=== PATIENT | male | born 1945 | race Hispanic/Latino ===

== ENCOUNTER → 2019-09-25 | Outpatient (CLI) | payer OTHER | END | disposition home or self-care (01) | LOC: RAH 11:16 | PROVIDERS: ATTEND Internal Medicine Cardiovascular Disease | DX: Z13.6 Encounter for screening for cardiovascular disorders (principal); K44.9 Diaphragmatic hernia without obstruction or gangrene | CPT/HCPCS: 75571 ==

== ENCOUNTER → 2019-10-10 | Outpatient (CLI) | payer MEDICARE ==
[~2019-10-10] MED LIST: ATOR-2 PO; CITA40TA6 PO; CLOP75TA14 PO; FURO40TA5 PO; LOSA50TA64 PO; METO-408 PO; OMEP20CA12 PO
== END | disposition home or self-care (01) ==
LOC: SHCH 14:19
PROVIDERS: ATTEND Internal Medicine Cardiovascular Disease
DX: I35.2 Nonrheumatic aortic (valve) stenosis with insufficiency (principal); I25.10 Atherosclerotic heart disease of native coronary artery without angina pectoris
CPT/HCPCS: 93306

== ENCOUNTER → 2019-11-23 | Outpatient (CLI) | payer MEDICARE ==
[~2019-11-23] MED LIST changes: +REGADENOSON 0.4 MG/5 ML PF SYG IVP SCH
== END | disposition home or self-care (01) ==
LOC: SHCH 11:42
PROVIDERS: ATTEND Internal Medicine Cardiovascular Disease
DX: I21.09 ST elevation (STEMI) myocardial infarction involving other coronary artery of anterior wall (principal); I21.19 ST elevation (STEMI) myocardial infarction involving other coronary artery of inferior wall; I25.89 Other forms of chronic ischemic heart disease; I25.10 Atherosclerotic heart disease of native coronary artery without angina pectoris
CPT/HCPCS: 78452; 93017; 96374; A9500 ×2; J2785

== ENCOUNTER 2019-12-01 05:59 | Observation (INO) | payer MEDICARE ==
[2019-11-29 09:11] LABS: BASOPHILS % (AUTO) 0.4 % (0.0-5.0); EOSINOPHILS % (AUTO) 3.6 % (0.0-8.0); HEMATOCRIT 33.8 % (42-54); LYMPHOCYTES % (AUTO) 27.7 % (21.0-51.0); MEAN CORPUSCULAR HEMOGLOBIN 31.9 pg (27.0-33.0); MEAN CORPUSCULAR HGB CONC 34.3 g/dL (32.0-36.0); MEAN CORPUSCULAR VOLUME 92.9 fL (79-99); MONOCYTES % (AUTO) 9.1 % (3.0-13.0); PLATELET COUNT (AUTO) 174 K/uL (130-400); RED BLOOD CELL COUNT(AUTO) 3.64 MIL/uL (4.50-6.20); RED CELL DISTRIBUTION WIDTH 12.6 % (11.0-15.5); WHITE BLOOD COUNT (AUTO) 5.6 K/uL (4.8-10.8)
[2019-11-29 09:18] LABS: APPEARANCE,URINE CLEAR (CLEAR); BILIRUBIN,URINE SMALL (NEGATIVE); COLOR,URINE YELLOW (YELLOW); GLUCOSE, URINE (UA) NEGATIVE (NEGATIVE); KETONES,URINE 5 mg/dL (NEGATIVE); LEUKOCYTE ESTERASE ,URINE NEGATIVE (NEGATIVE); NITRATE,URINE NEGATIVE (NEGATIVE); OCCULT BLOOD,URINE NEGATIVE (NEGATIVE); PROTEIN,URINE NEGATIVE (NEGATIVE); UROBILINOGEN,URINE 0.2 mg/dL (0.2-1.0)
[2019-11-29 09:20] LABS: CREATININE 1.3 mg/dL (0.5-1.5); POTASSIUM 4.6 mmol/L (3.5-5.1)
[2019-11-29 09:34] LABS: INR 0.98 (0.85-1.15); PARTIAL THROMBOPLASTIN TIME 26.5 SEC (26.3-35.5); PROTHROMBIN TIME 10.6 SEC (9.6-11.6)
[2019-11-29 09:36] LABS: BACTERIA,URINE Rare /HPF (None Seen); MUCUS,URINE Many LPF (None Seen); RBC,URINE 0-1 /HPF (0-1); SQUAMOUS EPITHELIAL CELL,UR Rare /HPF (0-2)
[2019-11-29 12:52] VITALS: BP 135/56
--- NOTE | 2019-11-30 13:31 | NUR ---
MONICA MATA CARDIAC REHABILITATION SPECIALIST NOTIFIED OF CREAT 1.3, NO NEW ORDERS RECEIVED OK TO PROCEED.
[~2019-12-01] VITALS: Ht 165.1 cm; Wt 93.0 kg
[2019-12-01] VITALS (20 sets, daily range): BP systolic 102–164; BP diastolic 49–61
[~2019-12-01 05:59] MED LIST changes: -REGADENOSON 0.4 MG/5 ML PF SYG IVP SCH; +SODIUM CHLORIDE 0.9% 500ML 500 ML IV SCH
[2019-12-01] MEDS ORDERED: HEPARIN SODIUM 1000UNIT/ML 10ML VIAL ONE (07:19)
[2019-12-01] MEDS ORDERED: NITROGLYCERIN 2 MG/VIAL VIAL IV ONE (07:19)
[2019-12-01] MEDS ORDERED: IOHEXOL-350 50ML VIAL IV ONE (07:20)
[2019-12-01] MEDS ORDERED: IOHEXOL 350 MG/ML 100ML INFUS..BTL IV ONE (07:20)
[2019-12-01] MEDS ORDERED: LIDOCAINE HCL 2% 20ML ONE (07:20)
[2019-12-01] MEDS ORDERED: MIDAZOLAM HCL 1 MG/ML 2ML VIAL ONE (07:36)
[2019-12-01] MEDS ORDERED: IOHEXOL-350 75 ML VIAL IV ONE (07:56)
[2019-12-01] MEDS ORDERED: SODIUM CHLORIDE 0.9% 1000ML 1,000 ML IV ONE (08:03)
[2019-12-01] MEDS ORDERED: ASPIRIN 325MG EC TAB 325 MG TABLET.DR PO ONE (08:04)
[2019-12-01] MEDS ORDERED: CLOPIDOGREL BISULFATE 75 MG TAB ONE (08:11)
[2019-12-01] MEDS ORDERED: CLOPIDOGREL BISULFATE 300 MG TAB PO SCH (08:30)
[2019-12-01] MEDS ORDERED: TEMAZEPAM 30 MG CAP PO PRN (08:30)
[2019-12-01] MEDS ORDERED: ACETAMINOPHEN-CODEINE 300/30MG TAB PO PRN ×2 (08:30)
[2019-12-01] MEDS ORDERED: MORPHINE SULFATE 4 MG/1ML SYG IVP SCH (08:30)
[2019-12-01] MEDS ORDERED: ONDANSETRON HCL 4 MG/2 ML VIAL IVP SCH (08:30)
[2019-12-01] MEDS ORDERED: ONDANSETRON HCL 4 MG/2 ML VIAL IVP PRN (08:30)
[2019-12-01] MEDS: PANTOPRAZOLE SODIUM 40 MG TABLET.DR PO SCH (08:35)
[2019-12-01] MEDS: ASPIRIN 81MG TAB.CHEW PO SCH (09:00)
--- NOTE | 2019-12-01 14:40 | NUR ---
Gave report to Antonio OWEN , transfered patient to room 418, nurse had no concerns. Advised the nurse of patient having bradycardia .
--- NOTE | 2019-12-01 17:00 | NUR ---
LINE' ARTERIAL LINE REMOVED FROM RIGHT GROIN WITH ASSIST OF MUNA OWEN. PRESSURE HELD FOR 25 MINUTES, NO HEMATOMA, NO BLEEDING. PULSES PRESENT, PT TOLERATED WELL. CONTINUES ON BEDREST, URINAL AT BEDSIDE, CALL LIGHT WITHIN REACH.
[2019-12-02] VITALS: BP 118/46
[2019-12-02 04:00] VITALS: BP 108/46
[2019-12-02 05:13] LABS: HEMATOCRIT 33.7 % (42-54); MEAN CORPUSCULAR HEMOGLOBIN 31.8 pg (27.0-33.0); MEAN CORPUSCULAR HGB CONC 34.1 g/dL (32.0-36.0); MEAN CORPUSCULAR VOLUME 93.1 fL (79-99); RED BLOOD CELL COUNT(AUTO) 3.62 MIL/uL (4.50-6.20); RED CELL DISTRIBUTION WIDTH 13.1 % (11.0-15.5); WHITE BLOOD COUNT (AUTO) 5.5 K/uL (4.8-10.8)
[2019-12-02 05:40] LABS: CREATININE 1.3 mg/dL (0.5-1.5); POTASSIUM 4.1 mmol/L (3.5-5.1)
--- NOTE | 2019-12-02 08:00 | NUR ---
AM ASSESSMENT PT AWAKE, ALERT, AND ORIENTED. DENIES CHEST PAIN OR PRESSURE, DENIES SOB OR LABORED RESPIRATIONS. RIGHT GROIN INTACT, NO DRAINAGE OR HEMATOMA, PEDAL PULSES PRESENT. ASSISTED TO SIDE OF BED, TOLERATED WELL. TELEMETRY MONITORING.
[2019-12-02] MEDS: ASPIRIN 81MG TAB.CHEW PO SCH (08:29)
[2019-12-02] MEDS: PANTOPRAZOLE SODIUM 40 MG TABLET.DR PO SCH ×2 (08:29→08:39)
[2019-12-02] MEDS ORDERED: CLOPIDOGREL BISULFATE 75 MG TAB PO SCH (09:00)
--- NOTE | 2019-12-02 16:45 | NUR ---
DC INSTRUCTIONS PT AWAKE, ALERT, AND ORIENTED. DENIES CHEST PAIN OR DISCOMFORT, DENIES SOB OR LABORED RESPIRATIONS, RIGHT GROIN INTACT, NO DRAINAGE OR HEMATOMA. DC INSTRUCTIONS GIVEN TO PT, ACKNOWLEDGED ALL INFORMATION, ALL QUESTIONS ANSWERED. PT MADE AWARE TO CALL 911 AND RETURN TO ER IF HAVING CHEST PAIN.
== END 2019-12-02 17:00 | disposition home or self-care (01) ==
LOC: DAH 05:59 → DAHIP 06:00 → 4CH 13:50
PROVIDERS: ADMIT Internal Medicine Cardiovascular Disease; ATTEND Internal Medicine Cardiovascular Disease
DX: I25.10 Atherosclerotic heart disease of native coronary artery without angina pectoris (principal); R06.00 Dyspnea, unspecified; I34.0 Nonrheumatic mitral (valve) insufficiency; I10 Essential (primary) hypertension; E78.5 Hyperlipidemia, unspecified; Z86.73 Personal history of transient ischemic attack (TIA), and cerebral infarction without residual deficits
CPT/HCPCS: 36415 ×3; 71045; 80048 ×2; 80061; 81001; 85025; 85027; 85347 ×2; 85610; 85730 ×4; 93005 ×2; 93458; 96360; 96361 ×2; A4215; A4216; A4221; A4222; A4223 ×3; A4606; A4663; C1769; C1874; C1887; C1894; C9600; G0378 ×19; J1644 ×2; J2250; J3490 ×2; J7030; Q9965; Q9967 ×3; 99156; 99157

== ENCOUNTER → 2020-01-18 | Outpatient (CLI) | payer MEDICARE ==
[~2020-01-18] MED LIST changes: -SODIUM CHLORIDE 0.9% 500ML 500 ML IV SCH
== END | disposition home or self-care (01) ==
LOC: RAH 10:13
PROVIDERS: ATTEND Physical Medicine & Rehabilitation
DX: M50.322 Other cervical disc degeneration at C5-C6 level (principal); M48.02 Spinal stenosis, cervical region
CPT/HCPCS: 72040

== ENCOUNTER → 2020-02-28 | Outpatient (CLI) | payer MEDICARE | END | disposition home or self-care (01) | LOC: RAH 13:06 | PROVIDERS: ATTEND Physical Medicine & Rehabilitation | DX: M50.122 Cervical disc disorder at C5-C6 level with radiculopathy (principal); M48.02 Spinal stenosis, cervical region | CPT/HCPCS: 72141 ==

== ENCOUNTER → 2021-03-07 | Outpatient (CLI) | payer MEDICARE ==
[~2021-03-07] MED LIST changes: +CITA-108 PO; -CITA40TA6 PO; +REGADENOSON 0.4 MG/5 ML PF SYG IVP ONE
== END | disposition home or self-care (01) ==
LOC: SHCH 07:59
PROVIDERS: ATTEND Internal Medicine Cardiovascular Disease
DX: I25.119 Atherosclerotic heart disease of native coronary artery with unspecified angina pectoris (principal)
CPT/HCPCS: 78452; 93017; 96374; A9500 ×2; J2785

== ENCOUNTER → 2022-03-10 | Outpatient (CLI) | payer MEDICARE, OTHER ==
[~2022-03-10] MED LIST changes: +CLOP-31 PO; -CLOP75TA14 PO; -REGADENOSON 0.4 MG/5 ML PF SYG IVP ONE
== END | disposition home or self-care (01) ==
LOC: RAH 13:18
PROVIDERS: ATTEND Internal Medicine Cardiovascular Disease
DX: I25.10 Atherosclerotic heart disease of native coronary artery without angina pectoris (principal); I72.4 Aneurysm of artery of lower extremity; G45.1 Carotid artery syndrome (hemispheric)
CPT/HCPCS: 93880; 93926

== ENCOUNTER → 2022-03-17 | Outpatient (CLI) | payer MEDICARE | END | disposition home or self-care (01) | LOC: SHCH 14:42 | PROVIDERS: ATTEND Internal Medicine Cardiovascular Disease | DX: I08.8 Other rheumatic multiple valve diseases (principal); I11.9 Hypertensive heart disease without heart failure; E78.5 Hyperlipidemia, unspecified | CPT/HCPCS: 93306 ==

== ENCOUNTER 2022-05-18 07:00 | Observation (INO) | payer MEDICARE ==
[2022-05-15 16:33] VITALS: BP 180/66
[2022-05-15 16:41] LABS: ALBUMIN 3.9 g/dL (3.5-5.0)
[2022-05-15 16:42] LABS: APPEARANCE,URINE CLEAR (CLEAR); BILIRUBIN,URINE NEGATIVE (NEGATIVE); COLOR,URINE YELLOW (YELLOW); GLUCOSE, URINE (UA) NEGATIVE (NEGATIVE); KETONES,URINE NEGATIVE (NEGATIVE); LEUKOCYTE ESTERASE ,URINE NEGATIVE Leu/uL (NEGATIVE); NITRATE,URINE NEGATIVE (NEGATIVE); OCCULT BLOOD,URINE NEGATIVE (NEGATIVE); PH,URINE 5.5 (5.0-8.0); PROTEIN,URINE 10 mg/dL (NEGATIVE); UROBILINOGEN,URINE 0.2 mg/dL (0.2-1.0)
[2022-05-15 16:44] LABS: MUCUS,URINE RARE LPF (None Seen); WBC,URINE 0-1 /HPF (0-1)
[2022-05-15 16:59] LABS: CRP QUANTITATIVE < 2.00 mg/L (0.00-9.0)
[2022-05-18] VITALS (30 sets, daily range): BP systolic 110–150; BP diastolic 41–98
[~2022-05-18] VITALS: Ht 167.6 cm; Wt 97.6 kg
[~2022-05-18 07:00] MED LIST changes: +BUPIVACAINE/PF 0.5% 30ML VIAL ONE; +KETOROLAC 30MG VIAL (30MG/ML) ONE; +LOSA100T58 PO; -LOSA50TA64 PO; -METO-408 PO; +TRANEXAMIC ACID 1000MG/10ML ONE
[2022-05-18] MEDS ORDERED: LACTATED RINGERS 1000ML 1,000 ML IV ONE (07:41)
[2022-05-18] MEDS ORDERED: CEFAZOLIN SODIUM 2 GM VIAL IVPB PRN (08:00)
[2022-05-18] MEDS ORDERED: LIDOCAINE PF 100MG/5ML (2%) SYRINGE 5ML ONE (08:14)
[2022-05-18] MEDS ORDERED: PROPOFOL 10 MG/ML 20ML VIAL IV ONE (08:17)
[2022-05-18] MEDS ORDERED: MIDAZOLAM HCL 1 MG/ML 2ML VIAL ONE (08:18)
[2022-05-18] MEDS ORDERED: FENTANYL CITRATE PF 50 MCG/1 ML 5ML AMP IV ONE (08:18)
[2022-05-18] MEDS ORDERED: ROCURONIUM 10MG/1ML SYR 10 MG/ML ML ONE ×2 (08:18→08:59)
[2022-05-18] MEDS ORDERED: CEFAZOLIN SODIUM 2 GM VIAL IVPB ONE (08:27)
[2022-05-18] MEDS ORDERED: TRANEXAMIC ACID 1000MG/10ML IV ONE ×2 (08:30→10:51)
[2022-05-18] MEDS ORDERED: EPHEDRINE SULFATE 50 MG/ML AMPULE ONE (08:40)
[2022-05-18] MEDS ORDERED: ONDANSETRON 4MG INJ ONE (08:57)
[2022-05-18] MEDS ORDERED: DEXAMETHASONE SOD PHOSPHATE 4 MG/ML 1ML VIAL ONE (08:57)
[2022-05-18] MEDS ORDERED: ROPIVACAINE 0.5% 5MG/ML 30ML IJ ONE (10:44)
[2022-05-18] MEDS ORDERED: GLYCOPYRROLATE 1 MG/5 ML SYRINGE ONE (10:47)
[2022-05-18] MEDS ORDERED: NEOSTIGMINE 5MG/5ML SYR IV ONE (10:47)
[2022-05-18] MEDS ORDERED: FERROUS FUMARATE 324 MG TABLET PO PRN (11:30)
[2022-05-18] MEDS ORDERED: POTASSIUM CHLORIDE 10% ELIXIR 20 MEQ/15 ML UDCUP PO PRN (11:30)
[2022-05-18] MEDS ORDERED: DiphenhydrAMINE HCL 50 MG/ML VIAL IVP PRN (11:30)
[2022-05-18] MEDS ORDERED: KCL 20 MEQ ERTAB PO PRN (11:30)
[2022-05-18] MEDS ORDERED: POTASSIUM CHLORIDE 20MEQ/100ML 100 ML IV PRN (11:30)
[2022-05-18] MEDS ORDERED: CYCLOBENZAPRINE HCL 10 MG TABLET PO PRN (11:30)
[2022-05-18] MEDS ORDERED: KETOROLAC 15MG/ML VIAL (15MG/ML) IV PRN (11:30)
[2022-05-18] MEDS ORDERED: LIDOCAINE HCL-MPF 1% 2ML VIAL IV PRN (11:30)
[2022-05-18] MEDS ORDERED: CALCIUM CARB 500MG PO PRN (11:30)
[2022-05-18] MEDS ORDERED: MEPERIDINE-PF 25 MG/ML SYG ONE (11:55)
[2022-05-18] MEDS: ONDANSETRON 4MG INJ IVP PRN ×3 (12:02→14:31)
[2022-05-18] MEDS: 0.9%NACL 1000ML 1,000 ML IV SCH ×2 (12:08→18:33)
[2022-05-18] MEDS: KETOROLAC 15MG/ML VIAL (15MG/ML) IV SCH ×2 (12:32→20:28)
[2022-05-18] MEDS: GABAPENTIN 100 MG CAPSULE PO SCH ×2 (14:43→20:26)
[2022-05-18] MEDS: TRAMADOL HCL 50 MG TABLET PO PRN (14:45)
[2022-05-18] MEDS: CEFAZOLIN SODIUM 1 GM VIAL IVP SCH (17:32)
[2022-05-18] MEDS: HYDROCODONE/ACETAMINOPHEN 5/325 MG TAB PO PRN (18:18)
[2022-05-18] MEDS: DOCUSATE SODIUM 100 MG CAP PO SCH (20:30)
[2022-05-19] MEDS: CEFAZOLIN SODIUM 1 GM VIAL IVP SCH (01:01)
[2022-05-19 03:13] VITALS: BP 154/63
[2022-05-19] MEDS: KETOROLAC 15MG/ML VIAL (15MG/ML) IV SCH (05:21)
[2022-05-19 06:17] LABS: HEMATOCRIT 29.3 % (42-54); MEAN CORPUSCULAR HGB CONC 33.8 g/dL (32.0-36.0); MEAN CORPUSCULAR VOLUME 91.8 fL (79-99); RED BLOOD CELL COUNT(AUTO) 3.19 MIL/uL (4.50-6.20); RED CELL DISTRIBUTION WIDTH 13.5 % (11.0-15.5); WHITE BLOOD COUNT (AUTO) 10.4 K/uL (4.8-10.8)
[2022-05-19 06:35] LABS: CREATININE 1.4 mg/dL (0.5-1.5); POTASSIUM 4.4 mmol/L (3.5-5.1)
[2022-05-19] MEDS: 0.9%NACL 1000ML 1,000 ML IV SCH (07:30)
[2022-05-19 08:00] VITALS: BP 170/55
[2022-05-19] MEDS: ASPIRIN 325MG TAB PO SCH (11:27)
[2022-05-19] MEDS: DOCUSATE SODIUM 100 MG CAP PO SCH ×2 (11:27→21:00)
[2022-05-19] MEDS: POLYETHYLENE GLYCOL 3350 17 GM POWD.PACK PO SCH (11:27)
[2022-05-19] MEDS: GABAPENTIN 100 MG CAPSULE PO SCH ×3 (11:29→21:00)
[2022-05-19 12:00] VITALS: BP 108/63
[2022-05-19 16:00] VITALS: BP 174/77
[2022-05-19 20:38] VITALS: BP 151/62
[2022-05-19] MEDS ORDERED: CITALOPRAM 20 MG TABLET PO SCH (21:00)
[2022-05-19] MEDS ORDERED: FUROSEMIDE 40 MG TABLET PO SCH (21:00)
[2022-05-19] MEDS ORDERED: ATORVASTATIN 40 MG TABLET PO SCH (21:00)
[2022-05-19] MEDS ORDERED: LOSARTAN 100 MG TABLET PO SCH (21:00)
[2022-05-19] MEDS: HYDROCODONE/ACETAMINOPHEN 5/325 MG TAB PO PRN (21:18)
[2022-05-19 23:47] VITALS: BP 117/50
[2022-05-20] MEDS: HYDROCODONE/ACETAMINOPHEN 5/325 MG TAB PO PRN (03:44)
[2022-05-20 03:58] VITALS: BP 155/74
[2022-05-20 08:00] VITALS: BP 107/45
[2022-05-20] MEDS: GABAPENTIN 100 MG CAPSULE PO SCH ×2 (08:20→13:36)
[2022-05-20] MEDS: DOCUSATE SODIUM 100 MG CAP PO SCH (08:20)
[2022-05-20] MEDS: ASPIRIN 325MG TAB PO SCH (08:20)
[2022-05-20] MEDS: TRAMADOL HCL 50 MG TABLET PO PRN (08:21)
[2022-05-20] MEDS: POLYETHYLENE GLYCOL 3350 17 GM POWD.PACK PO SCH (08:21)
[2022-05-20] MEDS ORDERED: PANTOPRAZOLE 40 MG TAB DR PO SCH (09:00)
[2022-05-20] MEDS ORDERED: ASPI-1026 PO (10:18)
[2022-05-20] MEDS ORDERED: DOCU-116 PO (10:18)
[2022-05-20] MEDS ORDERED: HYDR-4060 PO (10:18)
[2022-05-20] MEDS ORDERED: GABA100C PO (10:18)
[2022-05-20] MEDS ORDERED: CYCL-309 PO (10:18)
[2022-05-20 11:00] VITALS: BP 93/41
[2022-05-21] MEDS ORDERED: BISACODYL 10 MG SUPP.RECT RC PRN (11:30)
== END 2022-05-20 15:00 | disposition home health service (06) ==
LOC: DAH 07:00 → DAHIP 07:01 → 3BH 13:05
PROVIDERS: ADMIT Student in an Organized Health Care Education/Training Program; ATTEND Student in an Organized Health Care Education/Training Program
DX: M16.11 Unilateral primary osteoarthritis, right hip (principal); Z20.822 Contact with and (suspected) exposure to COVID-19; M25.551 Pain in right hip; I10 Essential (primary) hypertension; E78.5 Hyperlipidemia, unspecified; D62 Acute posthemorrhagic anemia; I25.10 Atherosclerotic heart disease of native coronary artery without angina pectoris; M21.70 Unequal limb length (acquired), unspecified site; Z95.1 Presence of aortocoronary bypass graft; Z79.899 Other long term (current) drug therapy; Z98.890 Other specified postprocedural states
CPT/HCPCS: 82040; 87088; 84134; 86140; 87426; 81001; 36415; 87641; 27130; 96374; 96375; 76942; 64450; 73502 ×2; 97161; 97039 ×5; 96376; 80048; 85027; 97116 ×4; 97530 ×4; G0378 ×53; A4663; C1776; J7120; J3010; J0690 ×4; J3490 ×6; J2710; J7030 ×2; J2001; J2250; J2704; J2405 ×2; J1100; J2175; J2795; J1885 ×3; A4649 ×4; G0168; A6255; A4615; A4215; A4223; A4222; A4221

== ENCOUNTER → 2022-05-30 | Outpatient (CLI) | payer MEDICARE ==
[~2022-05-30] MED LIST changes: +ASPI-1026 PO; -BUPIVACAINE/PF 0.5% 30ML VIAL ONE; +CYCL-309 PO; +DOCU-116 PO; +GABA100C PO; +HYDR-4060 PO; -KETOROLAC 30MG VIAL (30MG/ML) ONE; -TRANEXAMIC ACID 1000MG/10ML ONE
== END | disposition home or self-care (01) ==
LOC: SLP 20:35
PROVIDERS: ATTEND Internal Medicine Cardiovascular Disease
DX: G47.33 Obstructive sleep apnea (adult) (pediatric) (principal)
CPT/HCPCS: 95810

== ENCOUNTER → 2022-06-14 | Outpatient (CLI) | payer OTHER | END | disposition home or self-care (01) | LOC: SLP 20:55 | PROVIDERS: ATTEND Internal Medicine Cardiovascular Disease | DX: G47.33 Obstructive sleep apnea (adult) (pediatric) (principal) | CPT/HCPCS: 95811 ==

== ENCOUNTER → 2023-03-01 | Outpatient (CLI) | payer MEDICARE, OTHER ==
[~2023-03-01] MED LIST changes: -LOSA100T58 PO; +LOSA100T59 PO; +REGADENOSON 0.4 MG/5 ML PF SYG IVP ONE
== END | disposition home or self-care (01) ==
LOC: SHCH 08:22
PROVIDERS: ATTEND Internal Medicine Cardiovascular Disease
DX: I25.10 Atherosclerotic heart disease of native coronary artery without angina pectoris (principal)
CPT/HCPCS: 78452; 96374; 93017; J2785; A9500 ×2

== ENCOUNTER → 2023-04-13 | Outpatient (CLI) | payer MEDICARE ==
[~2023-04-13] MED LIST changes: -REGADENOSON 0.4 MG/5 ML PF SYG IVP ONE
== END | disposition home or self-care (01) ==
LOC: RAH 13:13
PROVIDERS: ATTEND Internal Medicine Cardiovascular Disease
DX: I08.0 Rheumatic disorders of both mitral and aortic valves (principal)
CPT/HCPCS: 93306

== ENCOUNTER → 2023-04-14 | Outpatient (CLI) | payer MEDICARE | END | disposition home or self-care (01) | LOC: LAB 10:24 | PROVIDERS: ATTEND Internal Medicine Cardiovascular Disease | DX: I10 Essential (primary) hypertension (principal) | CPT/HCPCS: 36415; 83880 ==

== ENCOUNTER → 2024-04-13 | Outpatient (CLI) | payer MEDICARE ==
--- NOTE | 2024-04-14 08:00 | HMCSR ---
APPROVED REPORT Laterality: Bilateral Indications i25.10 Doppler Spectral Velocity Analysis PSV / EDVPSV / EDV ECA (R) 137 / cm/sECA (L) 120 / cm/s dICA (R) 68 / 16 cm/sdICA (L) 50 / 15 cm/s Eran (R) 92 / 20 cm/smICA (L) 68 / 8 cm/s pICA (R) 68 / 19 cm/spICA (L) 103 / 28 cm/s dCCA (R) 69 / 10 cm/sdCCA (L) 91 / 16 cm/s mCCA (R) 99 / 9 cm/smCCA (L) 97 / 16 cm/s pCCA (R) 61 / 9 cm/spCCA (L) 58 / 10 cm/s Vert (R) 30 / cm/sVert (L) 41 / cm/s Subl. (R) 198 / cm/sSubl. (L) 244 / cm/s ICA/CCA 0.93ICA/CCA 1.06 Technologist Impression Minimal plaque noted in the bilateral carotids, without hemodynamic significance. Bilateral vertebral arteries appear antegrade. Left ICA techincally difficult to image due to tortuousity. Conclusion As above. Conclusion As above.
== END | disposition home or self-care (01) ==
LOC: SHCH 15:18
PROVIDERS: ATTEND Internal Medicine Cardiovascular Disease
DX: I25.10 Atherosclerotic heart disease of native coronary artery without angina pectoris (principal)
CPT/HCPCS: 93880